=== PATIENT | male | born 1935 | race Caucasian/White ===

== ENCOUNTER 2018-02-16 16:18 | Emergency (ER) | payer MEDICARE, OTHER ==
[~2018-02-16] VITALS: Ht 177.8 cm; Wt 74.8 kg
[~2018-02-16 16:18] MED LIST: CIPR500 PO; CLOP75 PO; Cipro500 MG PO; LEVSOD50 PO; LISI20 PO; Lithium Carbon450 MG PO; PARO10 PO; TAMSULOSIN HCL0.4 MG PO
[2018-02-16] MEDS ORDERED: Prinivil10 MG PO (16:36)
[2018-02-16] MEDS ORDERED: LEVSOD75 PO (16:36)
[2018-02-16] MEDS ORDERED: TAMS.4ER PO (16:37)
[2018-02-16] MEDS ORDERED: PARO30 PO (16:37)
[2018-02-16] MEDS ORDERED: CLOP75 PO (16:37)
== END 2018-02-16 18:33 | disposition home or self-care (01) ==
LOC: ER 16:18
DX: S51.811A Laceration without foreign body of right forearm, initial encounter (principal); W18.30XA Fall on same level, unspecified, initial encounter; F17.210 Nicotine dependence, cigarettes, uncomplicated; Z79.899 Other long term (current) drug therapy
CPT/HCPCS: 99283

== ENCOUNTER 2018-02-24 10:59 | Observation (INO) | payer MEDICARE, OTHER ==
[~2018-02-24] VITALS: Ht 177.8 cm; Wt 66.7 kg
[~2018-02-24 10:59] MED LIST changes: +LEVSOD75 PO; +Prinivil10 MG PO; +TAMS.4ER PO
[2018-02-24 11:17] LABS: BASOPHILS ABSOLUTE AUTO 0.03 K/mm3 (0.00-0.23); BASOPHILS PERCENT AUTO 1 % (0-2); EOSINOPHILS ABSOLUTE AUTO 0.08 K/mm3 (0.00-0.68); EOSINOPHILS PERCENT AUTO 1 % (0-6); Hematocrit 33.4 % (37.0-53.0); Hemoglobin 10.7 g/dL (13.5-17.5); IMMATURE GRAN ABSOLUTE AUTO 0.18 K/mm3 (0.00-0.10); IMMATURE GRAN PERCENT AUTO 3 % (0-1); LYMPHOCYTES ABSOLUTE AUTO 1.11 K/mm3 (0.84-5.20); LYMPHOCYTES PERCENT AUTO 17 % (21-46); MONOCYTES ABSOLUTE AUTO 1.13 K/mm3 (0.16-1.47); MONOCYTES PERCENT AUTO 17 % (4-13); Mean Corpuscular HGB 31.5 pg (26.0-34.0); Mean Corpuscular Volume 98 fL (80-100); Mean Platelet Volume 10.5 fL (9.1-12.4); NEUTROPHILS ABSOLUTE AUTO 4.09 K/mm3 (1.96-9.15); NEUTROPHILS PERCENT AUTO 62 % (41-73); Platelet Count 121 K/mm3 (150-400); RDW Coefficient Variation 13.1 % (11.7-14.2); RDW Standard Deviation 46.5 fL (35.1-46.3); White Blood Cell Count 6.62 K/mm3 (4.00-11.30)
[2018-02-24 11:31] LABS: International Normalized Ratio 1.01; Prothrombin Time Results 10.4 Sec (9.7-11.5)
[2018-02-24 11:33] LABS: Albumin, Blood 3.5 g/dL (3.4-5.0); Bilirubin, Total 0.3 mg/dL (0.1-1.0); Bun/Creatinine Ratio 15.5 (12.0-20.0); Calcium, Blood 9.2 mg/dL (8.5-10.1); Creatinine, Blood 1.42 mg/dL (0.60-1.20); Globulin, Blood 3.5 g/dL (2.2-4.0); Potassium, Blood 4.5 mmol/L (3.5-5.5)
[2018-02-24 12:12] LABS: Lithium 0.55 mmol/L (0.60-1.20)
[2018-02-28 04:58] LABS: BASOPHILS ABSOLUTE AUTO 0.02 K/mm3 (0.00-0.23); BASOPHILS PERCENT AUTO 0 % (0-2); EOSINOPHILS ABSOLUTE AUTO 0.08 K/mm3 (0.00-0.68); EOSINOPHILS PERCENT AUTO 2 % (0-6); Hematocrit 35.3 % (37.0-53.0); Hemoglobin 11.3 g/dL (13.5-17.5); IMMATURE GRAN ABSOLUTE AUTO 0.11 K/mm3 (0.00-0.10); IMMATURE GRAN PERCENT AUTO 2 % (0-1); LYMPHOCYTES ABSOLUTE AUTO 0.93 K/mm3 (0.84-5.20); LYMPHOCYTES PERCENT AUTO 17 % (21-46); MONOCYTES PERCENT AUTO 17 % (4-13); Mean Corpuscular HGB 31.3 pg (26.0-34.0); Mean Corpuscular Volume 98 fL (80-100); NEUTROPHILS ABSOLUTE AUTO 3.29 K/mm3 (1.96-9.15); NEUTROPHILS PERCENT AUTO 62 % (41-73); Platelet Count 101 K/mm3 (150-400); RDW Coefficient Variation 12.9 % (11.7-14.2); RDW Standard Deviation 46.4 fL (35.1-46.3); Red Blood Cell Count 3.61 M/mm3 (4.30-5.90); White Blood Cell Count 5.33 K/mm3 (4.00-11.30)
[2018-02-28 05:16] LABS: Bun/Creatinine Ratio 22.3 (12.0-20.0); Calcium, Blood 9.7 mg/dL (8.5-10.1); Creatinine, Blood 1.3 mg/dL (0.60-1.20); Potassium, Blood 4.6 mmol/L (3.5-5.5)
[2018-02-28] MEDS ORDERED: MECL12.5 PO (10:56)
== END 2018-03-01 11:41 | disposition home health service (06) ==
LOC: ER 10:59 → MEDS 11:00 → EDPENDDIS 02-28 10:00 → ENPENDDIS 02-28 10:00 → MEDS 03-01 11:41
PROVIDERS: Emergency Medicine; Internal Medicine
DX: R26.81 Unsteadiness on feet (principal); R42 Dizziness and giddiness; F31.9 Bipolar disorder, unspecified; E03.9 Hypothyroidism, unspecified; I67.9 Cerebrovascular disease, unspecified; F17.210 Nicotine dependence, cigarettes, uncomplicated; D64.9 Anemia, unspecified; Z91.81 History of falling; Z79.02 Long term (current) use of antithrombotics/antiplatelets; Z79.899 Other long term (current) drug therapy; Z51.81 Encounter for therapeutic drug level monitoring
CPT/HCPCS: 36415; 70450; 70551; 71046; 80048; 80053; 80178; 82947; 84145; 84443; 85025; 85610; 93005; 93010; 96361; 96372; 96374; 97161; 99285; G0378; G8978; G8979; G8980; J1650; J2405; J7030

== ENCOUNTER → 2018-04-19 | Outpatient (CLI) | payer MEDICARE, OTHER ==
[~2018-04-19] MED LIST changes: +BAYER CHEWABLE81 MG PO; +MECL12.5 PO
[2018-04-19 14:50] LABS: Bun/Creatinine Ratio 18.4 (12.0-20.0); Calcium, Blood 9.9 mg/dL (8.5-10.1); Creatinine, Blood 1.41 mg/dL (0.60-1.20); Potassium, Blood 4.6 mmol/L (3.5-5.5)
== END | disposition home or self-care (01) ==
LOC: LAB SHORT 10:56 → LAB 10:56
PROVIDERS: Physician Assistant
DX: C67.2 Malignant neoplasm of lateral wall of bladder (principal)
CPT/HCPCS: 80048